=== PATIENT | female | born 2000 | race American Indian/Alaskan Native ===

== ENCOUNTER 2025-04-17 12:22 | Outpatient (REF) | payer MEDICAID, SELFPAY ==
--- OUTSIDE RECORDS SUMMARY | 2023-12-13 09:00 | XMS_ITS ---
Author Organization [facility] [employer], [facility] Address [address] [id number] [address] Care Team Providers Care Lieutenant/Deputy Name Role Phone [facility] Primary Care Provid er Unavailable Stephanie Haas Unavailable [phone] REASON FOR VISIT Appointment Confirmation Encounters Encounter Location Date Provider Diagnosis [facility] [address] [id number] [address] 12/13/2023 [facility] PLAN OF TREATMENT No Information
--- OUTSIDE RECORDS SUMMARY | 2023-12-16 07:00 | XMS_ITS ---
Author Organization [facility] [employer] Address [address] [id number], [place] [address] Care Team Providers Care Cafeteria Server Name Role Phone [facility] Primary Care Provid er Unavailable Stephanie Haas Unavailable [phone] Melissa Cruz Unavailable [phone] REASON FOR VISIT BC Consult Encounters Encounter Location Date Provider Diagnosis [facility] Facility [address] [place] [address] 12/16/2023 Melissa Cruz PLAN OF TREATMENT No Information
--- OUTSIDE RECORDS SUMMARY | 2024-01-20 10:57 | XMS_ITS ---
Author Organization [facility] [employer] [facility] Address [address] [id number], [place] [address] Care Team Providers Care Australian Rules Footballer Name Role Phone [facility] Primary Care Provid er Unavailable Stephanie Haas Unavailable REASON FOR VISIT APPT Confirmation Encounters Encounter Location [facility] [address] [id number], [place] [address] 01/20/2024 Stephanie Haas PLAN OF TREATMENT No Information
--- OUTSIDE RECORDS SUMMARY | 2024-01-24 09:00 | XMS_ITS ---
Author Organization [employer] Address [address] [id number], [place] [address] Care Team Providers Care Radioisotope Technician Name Role Phone [facility] Primary Care Provid er Unavailable Stephanie Haas Unavailable [phone] REASON FOR VISIT establish care / need PCP Encounters Encounter Location Date Provider Diagnosis [facility] ([facility]) [facility] [place] [address] 01/24/2024 Stephanie Haas PLAN OF TREATMENT No Information
--- OUTSIDE RECORDS SUMMARY | 2024-01-26 11:49 | XMS_ITS | Continuity of Care Document ---
Author Organization [facility] Address [address] [place] [address] Phone Care Team Providers Care Display Mechanic Name Role Phone Nursing, Nursing Unavailable Unavailable [...] Location Reason(s) For Visit Diagnoses Date Provider [facility], [address] [place] [address], [facility], tel:[phone] [facility] No Information 4 Nursing Nursing. 30 [facility] [id number] [address] [place] [address], [facility], . tel:[phone], [facility], tel:[phone] [facility] Abdominal pain (chief complaint) Encounter for screening, unspecifiedAcute UTI 4 Allen Sebastian. [address], [place], [facility], . tel:[phone] [facility], [address] [place] [address], [facility], tel:[phone] [facility] .lower back pain (chief complaint) Lumbar back painBilateral thigh painPain in left thigh 4 Ed Olmos. [address] [place], [address] 1, . tel:[phone] [facility], [address] [place] [address], [address], tel:[phone] [facility] (chief complaint) Limited care, third weeks gestation of pregnancyEncounter for screening for infections with a predominantly sexual mode of transmissionEncounter for screening for other infectious and parasitic diseases 3 Kay Benedict. [address] [place] [address], [facility] [place], . tel:[phone] [facility], [address] [place] [address], [address], tel:[phone] [address] [place] [address] Adult Medical podiatry (chief complaint) Acute right ankle pain 3 Mirna Elias. [address] [place] [address], [id number] [address] [place] [address], [id number], . tel:[phone] [facility], [address] [place] [address], [facility], tel:[phone] [facility] No Information 3 Rk Velasquez. [address] [place] [address], [facility] [place], . tel:[phone] [facility], [address] [place] [address], [facility], [place] tel:[phone] [place] [facility] Anemia complicating , third [id number] weeks gestation of 3 Milly Avalos. [address] [place], [place], [id number], [place]. tel:[phone], [facility], tel:[phone] (chief complaint) Normal , third [id number] weeks gestation of pregnancyAnemia in , third trimester 3 Kay Benedict. [address] [place] [address], [facility] [place], . tel:[phone] [facility], [address] [place] [address], [facility], tel:[phone] [facility] Anemia complicating , second trimester 3 Nursing Nursing. [address] [facility], [id number] [place], [place], [facility], . tel:[phone] [facility], [address] [place] [address], [facility], tel:[phone] [facility] (chief complaint) Normal , third [id number] weeks gestation of 3 Kay Benedict. [address] [place] [address], [facility] [place], . tel:[phone] [facility], [address] [place] [address], [facility], tel:[phone] [facility] No Information 3 Rafstefan Santos. [address] [place], [place], [facility], . tel:[phone] [facility], [address] [place] [address], [facility], tel:[phone] [place] No Information 3 Rk Velasquez. [address] [place], [place], [facility] [place], . [phone] [facility], [address] [place] [address], [facility], tel:[phone] [facility] (chief complaint) Limited care, second [id number] weeks gestation of pregnancyShortness of breath due to in second trimesterShortness of breathAnemia in , second trimester 3 Kay Benedict. [address] [place] [address], [facility] [place], . tel:[phone] [facility], [address] [place] [address], [facility], tel:[phone] [place] No Information 3 Beckman Harsh. [address] [place] [address], [facility] [place], [place]. tel:[phone] [facility], [address] [place] [address], [facility], [place] tel:[phone] [place] Abnormal maternal glucose tolerance, antepartum Sep- 3 Demarcoherminia Benedict. [address] [place], [place], [facility] [place], . tel:[phone] [facility], [address] [place] [address], [facility], [place] tel:[phone] [facility] (chief complaint) Limited care, second weeks gestation of Feb- 3 Kay Benedict. [address] [place] [address], [facility] [place], . tel:[phone] [facility], [address] [place] [address], [facility], [place] tel:[phone] [address] [place] [address] Adult Medical podiatry (chief complaint) Acute right ankle pain Feb- 3 Mirna Elias. [address] [place] [address], [id number] [address] [place] [address], [address] [place] [address], [place]. tel:[phone] [facility], [address] [place] [address], [facility], [place] tel:[phone] [address] [place] [address] Adult Medical hand/foot pain (chief complaint) Chronic pain of right ankleOther chronic painWrist pain, left 3 Issac Gonzalez. [address] [place], [address], [place]. tel:[phone] [facility], [address] [place] [address], [facility], [place] tel:[phone] [place] [facility] (chief complaint) Normal , second [id number] weeks gestation of 3 Sandy Thomas. [address] [place], [address], [place]. tel:[phone] [facility], [address] [place] [address], [facility], [place] tel:[phone] [place] No Information 3 Rk Velasquez. [address] [place] [address]. tel:[phone] [facility], [address] [place] [address] tel:[phone] (chief complaint) Normal in first [id number] weeks gestation of pregnancyEncounter for screening for infections with a predominantly sexual mode of transmissionEncounter for screening for other infectious and parasitic diseasesEncounter for gynecological examination (general) (routine) without abnormal findings 3 Kay Benedict. [address] [place] [address], . tel:[phone] [facility], [address] [place] [address], [facility], tel:[phone] [place] [facility] Encounter for test, result unknown 3 Nursing Nursing. 30 [facility], [id number] [address] [place] [address], [facility], . tel:[phone] [facility], [address] [place] [address], [facility], tel:[phone] [place] No Information 3 Zia Pereira. 105 [facility], [id number] [address] [place] [address], . tel:[phone] [facility], [address] [place] [address], [facility], tel:[phone] [address] [place] [address] Adult Medical establish care (chief complaint) Wrist pain, rightChronic pain of right ankleOther chronic painEncounter to establish care 3 Issac Gonzalez. [address] [place], [place], [facility], . tel:[phone] Family History Family Member Type Diagnosis Age [...] Of Treatment Date Type Action Status Goal SBIRT. Due on du e Goal Hep B Core Ab, I gM. Due on due Goal Tdap/Td. Due on due Goal Depression scree mary. Due on due Goal Tdap. Due on due Goal PAP. Due on due Goal HCV reflex to Qu ant RT PCR. Due on due Goal HPV (). Due on due Goal SBIRT. Due on du e Goal Tdap/Td. Due on due Goal PAP. Due on due Goal Hep B Core Ab, I gM. Due on due Goal HPV (). Due on due Goal HCV reflex to [...] Goal HPV (1st). Due on due Goal SBIRT. Due on [...] Goal Tdap/Td. Due on due Goal HPV (1st). Due on due Goal PAP. Due on [...] due Goal PAP. Due on due Goal PAP. Due on due Goal HPV (). Due on due Goal Tdap. Due on due Goal Depression scree mary. Due on due Goal Tdap/Td. Due on due Goal Hep B Core [...] I gM. Due on due Goal HPV (). Due on due Goal Depression scree mary. Due on due Goal PAP. Due on due Goal Depression scree mary. Due on due Goal Tdap/Td. Due on due Goal Tdap. Due on due Goal PAP. Due on due Goal HCV reflex to Qu ant RT PCR. Due on due Goal SBIRT. Due on du e Goal HPV (). Due on due Goal Hep B Core Ab, I gM. Due on due Goal Hep B Core Ab, I gM. Due on due Goal HPV (). Due on due Goal PAP. Due on due Goal HCV reflex to Qu ant RT PCR. Due on due Goal SBIRT. Due on du e Goal Tdap. Due on due Goal Tdap/Td. [...] Goal HPV (). Due on due Goal HCV reflex to [...] Depression scree mary. Due on due Goal Influenza vaccin e. [...] Goal HPV (1st). Due on due Goal Depression scree mary. Due on due Goal Hep B Core Ab, I gM. Due on due Goal HCV reflex to Qu ant RT PCR. Due on due Goal SBIRT. Due on du e Goal Depression scree mary. Due on due Goal Tdap/Td. Due on due Goal Hep B Core Ab, I gM. Due on due Goal Influenza vaccin e. Due on due Goal HPV (1st). Due on due Goal Tdap. Due on due Goal Hep B Surface Ab , Quant. Due on due Goal Tdap/Td. Due on due Goal HPV (1st). Due on due Goal SBIRT. Due on du e Goal Hep B Core Ab, I gM. Due on due Goal PAP. Due on due Goal Tdap. Due on due Goal Depression scree mary. Due on due Goal HCV reflex to Qu ant RT PCR. Due on due Goal Hepatitis C scre ening. Due on due Goal Influenza vaccin e. Due on due Goal Hepatitis C scre [...] Future Order: Lab Order HCG Derrick t ([id number]), Ordered on: Ordered Future Order: Radiology Order Zahra mbar Spine X-ray (including sacrum) (Complete, with bending views) ([id number]), Ordered on: Ordered Future Order: Radiology Order OB Ultrasound; Follow-Up (Per Fetus) ([id number]), Ordered on: Ordered Future Order: Lab Order Ct, Ng, Trich vag by CONRADO ([id number]), Sent on: Sent Future Order: Lab Order Group B Streptococcus Colonization Detection, NNA ([id number]), Sent on: Sent Future Order: Lab Order Iron/TIB C ([id number]), Sent on: Sent Future Order: Lab Order Ferritin ([id number]), Sent on: Sent Future Order: Lab Order Gestatio nal Glucose Tolerance 3 Hour ([id number]), Sent on: Sent Future Order: Lab Order Gestatio nal Glucose Tolerance 3 Hour ([id number]), Sent on: Sent Future Order: Lab Order CBC ([id number]), Sent on: Sent Future Order: Lab Order GTT 1 Hr ([id number]), Sent on: Sent Future Order: Lab Order HIV 1/0/ 2 Ag/Ab With Reflex ([id number]), Sent on: Sent Future Order: Lab Order Monitor 14-Drug Class Profile ([facility] ) ([id number]), Sent on: Sent Future Order: Lab Order RPR, Rfx Qn RPR/Confirm TP-PA ([id number]), Sent on: Sent Future Order: Radiology Order OB Ultrasound; Follow-Up (Per Fetus) ([id number]), Ordered on: Ordered Future Order: Radiology Order An kle X-ray; Limited (2 views) ([id number]), Ordered on: Ordered Future Order: Radiology Order Wr ist X-ray; Limited (2 views) ([id number]), Ordered on: Ordered Future Order: Lab Order AFP, Ser um, Open Spina Bifida ([id number]), Ordered on: Ordered Future Order: Lab Order MaterniT 21 PLUS Core+SCA ([id number]), Ordered on: Ordered Future Order: Radiology Order OB Ultrasound (equal or greater than 14 wks GA); Transabdominal; Single Fetus ([id number]), Ordered on: Ordered Future Order: Radiology Order Wr ist X-ray; Limited (2 views) ([id number]), Ordered on: Ordered Future Order: Radiology Order An kle X-ray; Limited (2 views) ([id number]), Ordered on: Ordered Future Order: Lab Order SOLANGE ([id number]), Sent on: Sent Future Order: Lab Order CBC w/di ff ([id number]), Sent on: Sent Future Order: Lab Order CMP ([id number]), Sent on: Sent Future Order: Lab Order Lyme, We larry Blot, Serum ([id number]), Sent on: Sent Future Order: Lab Order RPR, Rfx Qn RPR/Confirm TP-PA ([id number]), Sent on: Sent Future Order: Lab Order Rheumato id Factor ([id number]), Sent on: Sent Future Order: Lab Order HIV 1/0/ 2 Ag/Ab With Reflex ([id number]), Sent on: Sent History Of Present Illness [...] ankle. Related to Acute right ankle pain Follow up in <1-2wks after xrays Related to Chronic pain of right ankle Follow up in <1-2 wks after xray s Related to Wrist pain, left Supportive Care Related to Wrist pain, left Supportive Care Related to Other chronic pain [...]
[2025-04-17 14:40] LABS: MANUAL DIFF FLAG NO
[2025-04-17 14:43] LABS: Alanine Aminotransferase 23 U/L (0-31); Albumin Level 4.6 g/dL (3.5-5.0); Alkaline Phosphatase 87 U/L (39-117); Aspartate Amino Transferase 27 U/L (5-31); Cholesterol 167 mg/dL (<200); HDL Cholesterol 46 mg/dL (>40); Total Protein 7.5 g/dL (6.5-8.0); Triglycerides 49 mg/dL (<150)
[2025-04-17 14:44] LABS: Hematocrit 38.7 % (37.0-47.0); Hemoglobin 12.9 g/dl (12.0-16.0); Imm Gran Abs Auto 0.02 X10*3/uL (0.00-0.03); Imm Gran Pct Auto 0.3 % (0.0-0.4); Lymphocytes Absolute Auto 2.7 X10*3/uL (1.2-4.9); Mean Corpuscular HGB Conc 33.3 g/dl (31.0-35.0); Mean Corpuscular Hemoglobin 29.7 pg (27.0-33.0); Mean Corpuscular Volume 89.2 fL (80.0-98.0); NRBC Abs Auto 0.000 X10*3/uL (0.0-0.012); NRBC Pct Auto 0.0 /100WBC (0.0-0.2); Platelet Count 354 X10*3/uL (160-400); Red Blood Count 4.34 X10*6/uL (4.20-5.50); White Blood Count 7.9 X10*3/uL (4.8-10.8)
--- OUTSIDE RECORDS SUMMARY | 2025-04-17 15:41 | XMS_ITS | Clinical Summary ---
Author Organization [facility] Address [address] [place] [address] Care Team Providers Care Brake Operator Name Role Phone Unavailable Primary Care Provider Unavailabl e Allergies No known active allergies Medications No known medications Active Problems Problem Noted Date Diagnosed Date Indication for care in labor or delivery 024 Immunizations Name Administration Dates Next Due MMR 06/24/2023 Social History Tobacco Use Types Packs/Day Years Used Date Smoking Tobacco: Never Passive Smoke Exposure: Never Smokeless Tobacco: Never Tobacco Cessation:Counseling Given: No Sex and Gender Information Value Date Recorded Sex Assigned at Female 06/22/2023 9:48 AM EST Gender Identity Not on file Sexual Orientation Not on file Job Start Date Occupation Industry Not on file Not on file Not on file Last Filed Vital Signs Vital Sign Reading Time Taken Comments Blood Pressure 101/58 06/24/2023 9:20 AM EST Pulse 73 06/24/2023 9:20 AM EST Temperature 36.7 C (98.1 F) 06/24/2023 9:20 AM EST Respiratory Rate 16 06/24/2023 9:20 AM EST Oxygen Saturation 98% 06/24/2023 9:20 AM EST Inhaled Oxygen Concentration - - Weight 51.7 kg (114 lb) 06/22/2023 1:37 PM EST Height 140 cm (4' 7.12 ) 06/22/2023 9:00 AM EST Body Mass Index 26.38 06/22/2023 9:00 AM EST Plan of Treatment Not on file Advance Directives For more information, please contact: [phone] Latest Code Status on File Code Status Date Activated Date Inactivated Comments Full Code 06/22/2023 10:16 AM 06/24/2023 9:17 PM This c ode status was ascertained in the following way: discussion with patient .
--- OUTSIDE RECORDS SUMMARY | 2025-04-17 15:42 | XMS_ITS | Patient Health Record ---
Author Organization [email or web address] Address [address] [facility] [id number] [address] Care Team Providers Care Department Store Door Greeter Name Role Phone Samesurf Primary Care Provid er Unavailable ReidTeresoStephanie sharpe Unavailable ALLERGIES No Known Allergies REASON FOR REFERRAL No Information MEDICATIONS Medication SIG (Take, Route, Frequency, Duration) Notes Start Date End Date Status Nitrofurantoin Monohyd Macro 100 MG 1 capsule with food Orally every 12 hrs for 5 days 09/14/2023 Active Docusate Sodium 100 MG 1 capsule as need ed Orally Once a day for 30 days [id number] Active metroNIDAZOLE 0.75 % 1 applicatorful at bedtime Vaginal Once a day for 5 days Active SOCIAL HISTORY Tobacco Use: Social History Observation Description Date Details (start date - stop date) Never Smoker NA - NA Sex Assigned At : Social History Observation Description Sex Assigned At Unknown Tobacco Use/Smoking Question Answer Notes Are you a nonsmoker PROBLEMS Problem Type ICD Code Onset Dates Problem Status W/U Status Risk SNOMED Code Notes Problem Anemia during (O99.019) Active confirmed [id number] PLAN OF TREATMENT No Information MEDICAL (GENERAL) HISTORY Medical History History ICD Code anemia-IV infusions
--- OUTSIDE RECORDS SUMMARY | 2025-04-17 15:42 | XMS_ITS | Clinical Summary ---
Author Organization [facility] Address [address] [place] [address] Care Team Providers Care Cake Knocker Name Role Phone Unavailable Primary Care Provider Unavailabl e Social History Tobacco Use Types Packs/Day Years Used Date Smoking Tobacco: Never Smokeless Tobacco: Never Comments Unknown Sex and Gender Information Value Date Recorded Sex Assigned at Not on file Legal Sex Female 4:49 PM EDT Gender Identity Not on file Sexual Orientation Not on file Obstetrics History Plan of Treatment Health Maintenance Due Date Last Done Comments HPV Vaccines (1 - 3-dose series) 2013 DTaP,Tdap,and Td Vaccines (1 - Tdap) 2017 Hepatitis B Vaccines (1 of 3 - 19+ 3-dose series) 2017 Cervical Cancer Screening: P ap Smear 12/30/2019 HIV Screening 01/19/2024 Hepatitis C Screening 01/19/2024 Social Influencers of Health Screening 01/19/2024 Depression Screening 06/21/2024 COVID-19 Vaccine ( - 2023-2 5 season) 2025 Influenza Vaccine (#1) 2025 RSV Immunization Adult Patie nts (1 - 1-dose 75+ series) 2073 MMR Vaccines Aged Out 06/24/2023 No longer eligi ble based on patient's age to complete this topic HIB Vaccines Aged Out No longer eligi ble based on patient's age to complete this topic Hepatitis A Vaccines Aged Out No long er eligible based on patient's age to complete this topic IPV Vaccines Aged Out No longer eligi ble based on patient's age to complete this topic Meningococcal ACWY Vaccine Aged Out N o longer eligible based on patient's age to complete this topic Meningococcal B Vaccine Aged Out No l onger eligible based on patient's age to complete this topic Pneumococcal Vaccine: Pediat rics (0 to 5 Years) and At-Risk Patients (6 to 49 Years) Aged Out No longer eligi ble based on patient's age to complete this topic RSV Immunization Patients Un miriam 20 months Aged Out No longer eligible b ased on patient's age to complete this topic Varicella Vaccines Aged Out No longer eligible based on patient's age to complete this topic
--- OUTSIDE RECORDS SUMMARY | 2025-04-17 15:42 | XMS_ITS | Clinical Summary ---
Author Organization [employer] Address [address] [facility] [address] [place] [address] Care Team Providers Care Assurance Manager Insurance Name Role Phone Marcello Brand CNP Primary Care Provider [phone] Medications No known medications Active Problems No known active problems Encounters Date Type Department Care Team Description 04/10/2025 10:30 AM EDT Office Visit [facility] [address] [place] [address] Marcello Brand CNP Encounter for physical examination (Primary Dx); Ankle mass, right; Encounter for counseling regarding contraception; Dietary counseling; Exercise counseling; Overweight; Nelson's palsy 04/10/2025 Travel 04/06/2025 Telephone [facility] [address] [place] [address] Cristiane Arredondo MA chart prep 04/03/2025 Patient Outreach [facility] [address] [place] [address] Franco Pendleton MD Pre-visit Planning (SDOH screening negative and Tobacco screening negative) 03/06/2025 Telephone [facility] [address] [place] [address] Franco Pendleton MD Appointment Request from Last 3 Months Social History Tobacco Use Types Packs/Day Years Used Date Smoking Tobacco: Never Passive Smoke Exposure: Never Smokeless Tobacco: Never Tobacco Cessation:Counseling Given: Not Answered Depression Answer Date Recorded Patient Health Questionnaire-9 Score 0 04/10/2025 Patient Health Questionnaire-9 Score 0 04/10/2025 Last PHQ-9: Questionnaire Data Not on file 1 Housing Stability Answer Date Recorded What is your housing situation today? I have lissy cole 04/03/[address] you li ve. Do you have problems with any of the following? None of the above 04/03/2025 Food Insecurity Answer Date Recorded Within the past 12 months, y ou worried that your food would run out before you got money to buy more: Never True 04/03/2025 Within the past 12 months,th e food you bought just didn't last and you didn't have enough money to get more: Never True Transportation Answer Date Recorded In the past 12 months, has l ack of transportation kept you from medical appts, meetings, work or from getting things needed for daily living? No 04/03/2025 Utilities Answer Date Recorded In the past 12 months, has t he electric, gas, oil or water company threatened to shut off services in your home? No 04/03/2025 Depression Answer Date Recorded Patient Health Questionnaire-2 Score 0 04/10/2025 Internet Access Answer Date Recorded Internet Access Q1 Yes 04/03/2025 Internet Access Q2 Not on file 04/03/2025 Comments No Sex and Gender Information Value Date Recorded Sex Assigned at Female 03/06/2025 1:56 PM EDT Legal Sex Female 1:55 PM EDT Gender Identity Female 04/09/2025 4:19 PM EDT Sexual Orientation Straight 04/09/2025 4: 19 PM EDT Last Filed Vital Signs Vital Sign Reading Time Taken Comments Blood Pressure 104/68 04/10/2025 10:33 AM EDT Pulse 72 04/10/2025 10:33 AM EDT Temperature 36.3 C (97.3 F) 04/10/2025 10:33 AM EDT Respiratory Rate 14 04/10/2025 10:33 AM EDT Oxygen Saturation 99% 04/10/2025 10:33 AM EDT Inhaled Oxygen Concentration - - Weight 53.5 kg (118 lb) 04/10/2025 10:33 AM EDT Height 139.7 cm (4' 7 ) 04/10/2025 10:33 AM EDT Body Mass Index 27.43 04/10/2025 10:33 AM EDT Plan of Treatment Upcoming Encounters Date Type Department Care Team (Late st Contact Info) Description 06/25/2025 10:00 AM EST Clinical Support [facility] [address] [place] [address] Health Maintenance Due Date Last Done Comments HIV Screening 1998 Family Planning (PISQ) 11/29/2013 HPV Vaccines (1 - 3-dose series) 11/29/2013 Hepatitis C Screening 11/29/2016 DTaP/Tdap/Td Vaccines (1 - Tdap) 11/29/2017 Hepatitis B Vaccines (1 of 3 - 19+ 3-dose series) 11/29/2017 Pap Smear 11/30/2019 COVID-19 Vaccine (1 - 2023-2 5 season) 2025 Influenza Vaccine (#1) 2025 Alcohol/Substance Use Screening 04/10/2026 04/10/2025 Depression Screening 04/10/2026 04/10/2025, 04/10/2025 Disability Screening 04/10/2026 04/10/2025 SDOH Screening 04/10/2026 04/10/2025 Tobacco Screening 04/10/2026 04/10/2025 Zoster Vaccines (1 of 2) 11/29/2048 RSV Patients and Patients Aged 60 years or older (1 - 1-dose 75+ series) 11/29/2073 HIB Vaccines Aged Out No longer eligi [...] patient's age to complete this topic Meningococcal Vaccine Aged Out No ben marichuy eligible based on patient's age to complete this topic Pneumococcal Vaccine: Pediatrics (0 to 5 Years) and At-Risk Patients (6 to 49) Years Aged Out No longer eligible b ased on patient's age to complete this topic RSV under 20 months Aged Out No longe r eligible based on patient's age to complete this topic Rotavirus Vaccines Aged Out No longer eligible based on patient's age to complete this topic Insurance [employer] F[employer] Care Teams Assurance Manager Insurance Relationship Specialty Start Date End Date Marcello Brand CNP [address] [place] [id number] PCP - General Family Medicine 04/10/25
--- OUTSIDE RECORDS SUMMARY | 2025-04-17 15:42 | XMS_ITS | Encounter Summary ---
Author Organization [employer] Address [address] [facility] [address] [place] [address] Care Team Providers Care Roving Inspector Name Role Phone Marcello Brand GREG Primary Care Provider [phone] Reason for Visit * Reason Onset Date Comments Appointment Request 03/06/2025 Encounter Details Date Type Department Care Team (Late Contact Info) Description 03/06/[address] [facility] [address] [place], [place] [phone] Franco Pendleton MD [address] [place], [place] [phone] Appointment Request Social History Tobacco Use Types Packs/Day Years Used Date Smoking Tobacco: Never Assessed Comments Unknown Sex and Gender Information Value Date Recorded Sex Assigned at Female 03/06/2025 1:56 PM EDT Legal Sex Female 1:55 PM EDT Gender Identity Female 04/09/2025 4:19 PM EDT Sexual Orientation Straight 04/09/2025 4: 19 PM EDT documented as of this encounter Miscellaneous Notes * Telephone Encounter - Ruthie Rodgers - 03/06/2025 1:58 PM EDT TC from caller requesting NEW PATIENT visit . DX : N/A Medical Concern: Half face numbness Insurance name : [employer] Location : [place] Demographic information updated documented in this encounter Plan of Treatment Upcoming Encounters Date Type Department Care Team (Late Contact Info) Description 06/25/2025 10:00 AM EST Clinical Support [facility] [address] [place], [place] [phone] documented as of this encounter Visit Diagnoses Not on filedocumented in this encounter Care Teams Roving Inspector Relationship Specialty Start Date End Date Marcello Brand CNP [address] [place], [place] [address] [address] PCP - General Family Medicine 04/10/25 documented as of this encounter
[2025-04-18 08:34] LABS: HBS Num1 0.23 mIU/mL (0-7.99); HBc Num1 0.22 S/CO (0.00-0.79); HBsAGNum1 0.39 S/CO (0.00-0.99); HIV Num 1 0.06 S/CO (0.00-0.99); Hepatitis B Surface Antigen Negative (Negative); ~HepC Num1 0.09 S/CO (0.00-0.79); ~Hepatitis B Surface Antibody NONREACTIVE (Nonreactive); ~Hepatitis C Antibody Nonreactive (Nonreactive)
== END 2025-04-17 12:23 | disposition home or self-care (01) ==
LOC: HO.CHCLDS 12:22
DX: Z00.00 Encounter for general adult medical examination without abnormal findings (principal); Z11.59 Encounter for screening for other viral diseases; Z11.4 Encounter for screening for human immunodeficiency virus [HIV]
CPT/HCPCS: 36415; 80061; 80076; 85025; 86704; 86706; 86803; 87340; 87389

== ENCOUNTER 2025-05-31 15:03 | Outpatient (REF) | payer MEDICAID, OTHER, SELFPAY ==
--- OUTSIDE RECORDS SUMMARY | 2023-12-13 08:00 | XMS_ITS ---
Author Organization [facility] [employer], [facility] Address [address] [id number] [address] Care Team Providers Care Transfer Agent Name Role Phone [facility] Primary Care Provid er Unavailable Stephanie Haas Unavailable [phone] REASON FOR VISIT Appointment Confirmation Encounters Encounter Location Date Provider Diagnosis [facility] [address] [id number] [address] 12/13/2023 [facility] PLAN OF TREATMENT No Information
--- OUTSIDE RECORDS SUMMARY | 2023-12-16 06:00 | XMS_ITS ---
Author Organization [facility] [employer] Address [address] [id number], [place] [address] Care Team Providers Care Loom Changer Name Role Phone [facility] Primary Care Provid er Unavailable Stephanie Haas Unavailable [phone] Melissa Cruz Unavailable [phone] REASON FOR VISIT BC Consult Encounters Encounter Location Date Provider Diagnosis [facility] [address] [place] [address] 12/16/2023 Melissa Cruz PLAN OF TREATMENT No Information
--- OUTSIDE RECORDS SUMMARY | 2024-01-20 09:57 | XMS_ITS ---
Author Organization [facility] [employer] [facility] Address [address] [id number], [place] [address] Care Team Providers Care Molasses And Caramel Operator Name Role Phone [facility] Primary Care Provid er Unavailable Stephanie Haas Unavailable [phone] REASON FOR VISIT APPT Confirmation Encounters Encounter Location Date Provider Diagnosis [employer] [address] [id number], [place] [address] 01/20/2024 Stephanie Haas PLAN OF TREATMENT No Information
--- OUTSIDE RECORDS SUMMARY | 2024-01-24 08:00 | XMS_ITS ---
Author Organization [employer] Address [address] [facility] [id number], [place] [address] Care Team Providers Care Rn Ambulatory Name Role Phone [facility] Primary Care Provid er Unavailable Stephanie Haas Unavailable REASON FOR VISIT establish care / need PCP Encounters Encounter Location Date Provider Diagnosis [facility] ([facility]) [facility] [address] [address] 01/24/2024 Stephanie Haas PLAN OF TREATMENT No Information
--- OUTSIDE RECORDS SUMMARY | 2024-01-26 10:49 | XMS_ITS | Continuity of Care Document ---
Author Organization [facility] Address [address] [place] [address] Phone Care Team Providers Care Lesson Instructor Name Role Phone Nursing, Nursing Unavailable Unavailable Allergies, Adverse Reactions, Alerts Substance Reaction Status Criticality No Known Allergies Active No Inform ation Medications Medication Instructions Dosage Effective Dates (start - stop) Status Comments Iron (ferrous sulfate) 325 mg (65 mg iron) tablet take 1 tablet by oral route 3 times every day 325 MG - Active acetaminophen 500 mg tablet take 1 tablet by oral route every 8 hours as needed as needed 500 MG - Active Advance Directives Directive Yes / No Effective Date File Name No Information Encounters Encounter Description Practice Location Reason(s) For Visit Diagnoses Date Provider [facility], [address] [place] [address], [facility], tel:[phone] [facility] No Information 4 Nursing Nursing. 30 [facility] [id number] [address] [place] [address], [facility], . tel:[phone], [facility], tel:[phone] [facility] Abdominal pain (chief complaint) Encounter for screening, unspecifiedAcute UTI 4 Allen Sebastian. [address] [place], [place], [facility], . tel:[phone] [facility], [address] [place] [address], [facility], tel:[phone] [facility] .lower back pain (chief complaint) Lumbar back painBilateral thigh painPain in left thigh 4 Ed Olmos. [address] [place], [address] 1, . tel:[phone] [facility], [address] [place] [address], [address], tel:[phone] (chief complaint) Limited care, third [id number] weeks gestation of pregnancyEncounter for screening for infections with a predominantly sexual mode of transmissionEncounter for screening for other infectious and parasitic diseases 3 Kay Benedict. [address] [place] [address], [facility], . tel:[phone] [facility], [address] [place] [address], [address], tel:[phone] [address] [place] [address] Adult Medical podiatry (chief complaint) Acute right ankle pain 3 Mirna Elias. [address] [place] [address], [id number] [address] [place] [address], [id number], . tel:[phone] [facility], [address] [place] [address], [facility], tel:[phone] [facility] No Information 3 Rk Velasquez. [address] [place] [address], [facility], . tel:[phone] [facility], [address] [place] [address], [facility], [place] tel:[phone] [facility] Anemia complicating , third [id number] weeks gestation of 3 Milly Avalos. [address] [place], [place], [id number], [place]. tel:[phone], [facility], tel:[phone] [facility] (chief complaint) Normal , third [id number] weeks gestation of pregnancyAnemia in , third trimester 3 Kay Benedict. [address] [place] [address], [facility], . tel:[phone] [facility], [address] [place] [address], [facility], tel:[phone] [facility] Anemia complicating , second trimester 3 Nursing Nursing. 30 [address] [facility], [id number] [address], [place], [facility], . tel:[phone] [facility], [address] [place] [address], [facility], tel:[phone] [facility] (chief complaint) Normal , third [id number] weeks gestation of 3 aKy Benedict. [address] [place] [address], [facility], . tel:[phone] [facility], [address] [place] [address], [facility], tel:[phone] [facility] No Information 3 Rafstefan Santos. [address] [place], [place], [facility], . tel:[phone] [facility], [address] [place] [address], [facility], tel:[phone] No Information 3 Rk Velasquez. [address] [place], [place], [facility], . [phone] [facility], [address] [place] [address], [facility], tel:[phone] [facility] (chief complaint) Limited care, second [id number] weeks gestation of pregnancyShortness of breath due to in second trimesterShortness of breathAnemia in , second trimester 3 Kay Benedict. [address] [place] [address], [facility], . tel:[phone] [facility], [address] [place] [address], [facility], tel:[phone] No Information 3 Beckman Harsh. [address] [place] [address], [facility], [place]. tel:[phone] [facility], [address] [place] [address], [facility], [place] tel:[phone] [facility] Abnormal maternal glucose tolerance, antepartum Sep- 3 Demarcoherminia Benedict. [address] [place], [place], [facility], . tel:[phone] [facility], [address] [place] [address], [facility], [place] tel:[phone] [facility] (chief complaint) Limited care, second weeks gestation of Feb- 3 Kay Benedict. [address] [place] [address], [facility], . tel:[phone] [facility], [address] [place] [address], [facility], [place] tel:[phone] [address] [place] [address] Adult Medical podiatry (chief complaint) Acute right ankle pain Feb- 3 Mirna Elias. [address] [place] [address], [id number] [address] [place] [address], [address] [place] [address], [place]. tel:[phone] [facility], [address] [place] [address], [facility], [place] tel:[phone] [address] [place] [address] Adult Medical hand/foot pain (chief complaint) Chronic pain of right ankleOther chronic painWrist pain, left 3 Issac Gonzalez. [address] [place], [address], [place]. tel:[phone] [facility], [address] [place] [address], [facility], [place] tel:[phone] [facility] (chief complaint) Normal , second weeks gestation of 3 Sandy Thomas. [address] [place], [address], [place]. tel:[phone] [facility], [address] [place] [address], [facility], [place] tel:[phone] No Information 3 Rk Velasquez. [address] [place] [address]. tel:[phone] [facility], [address] [place] [address] tel:[phone] [facility] (chief complaint) Normal in first [id number] weeks gestation of pregnancyEncounter for screening for infections with a predominantly sexual mode of transmissionEncounter for screening for other infectious and parasitic diseasesEncounter for gynecological examination (general) (routine) without abnormal findings 3 Kay Benedict. [address] [place] [address], . tel:[phone] [facility], [address] [place] [address], [facility], tel:[phone] [facility] Encounter for test, result unknown 3 Nursing Nursing. 30 [facility], [id number] [address] [place] [address], [facility], . tel:[phone] [facility], [address] [place] [address], [facility], tel:[phone] No Information 3 Zia Pereira. 105 [facility], [id number] [address] [place] [address], . tel:[phone] [facility], [address] [place] [address], [facility], tel:[phone] [address] [place] [address] Adult Medical establish care (chief complaint) Wrist pain, rightChronic pain of right ankleOther chronic painEncounter to establish care 3 Issac Gonzalez. [address] [place], [place], [facility], . tel:[phone] Family History Family Member Type Diagnosis Age At Onset Father Problem Alive and well Mother Problem Alive and well Payers Payer name Insurance type Covered libertarian ID Authoriza tion(s) Self Pay VRC/wl Social History Type Description Quantity Date Captured Comments Alcohol Use Details Unknown Caffeine Use Details Unknown Tobacco Use Status No Information Smoking Status No Information Sex Female Sexual Orientation Straight or heterosexual Jun Gender Identity Female Chief Complaint And Reason For Visit No Information Plan Of Treatment Date Type Action Status Goal HCV reflex to Qu ant RT PCR. Due on due Goal Hep B Core Ab, I gM. Due on due Goal PAP. Due on due Goal HPV (). Due on due Goal Depression scree mary. Due on due Goal Tdap. Due on due Goal SBIRT. Due on du e Goal Tdap/Td. Due on due Goal Depression scree mary. Due on due Goal SBIRT. Due on du e Goal Tdap. Due on due Goal Hep B Core Ab, I gM. Due on due Goal HCV reflex to Qu ant RT PCR. Due on due Goal PAP. Due on due Goal HPV (). Due on due Goal Tdap/Td. Due on due Goal Tdap. Due on due Goal HPV (). Due on due Goal PAP. Due on due Goal SBIRT. Due on du e Goal Depression scree mary. Due on due Goal Hep B Core Ab, I gM. Due on due Goal HCV reflex to Qu ant RT PCR. Due on due Goal Tdap/Td. Due on due Goal HPV (). Due on due Goal Depression scree mary. Due on due Goal Hep B Core Ab, I gM. Due on due Goal Tdap. Due on due Goal HCV reflex to Qu ant RT PCR. Due on due Goal Tdap/Td. Due on due Goal SBIRT. Due on du e Goal PAP. Due on due Goal Tdap/Td. Due on due Goal HCV reflex to Qu ant RT PCR. Due on due Goal Hep B Core Ab, I gM. Due on due Goal Depression scree mary. Due on due Goal Tdap. Due on due Goal PAP. Due on due Goal HPV (). Due on due Goal SBIRT. Due on du e Goal SBIRT. Due on du e Goal HCV reflex to Qu ant RT PCR. Due on due Goal Tdap. Due on due Goal Tdap/Td. Due on due Goal PAP. Due on due Goal HPV (1st). Due on due Goal Hep B Core Ab, I gM. Due on due Goal Depression scree mary. Due on due Goal PAP. Due on due Goal HPV (1st). Due on due Goal Tdap. Due on due Goal Depression scree mary. Due on due Goal Tdap/Td. Due on due Goal SBIRT. Due on du e Goal Hep B Core Ab, I gM. Due on due Goal HCV reflex to Qu ant RT PCR. Due on due Goal Depression scree mary. Due on due Goal HPV (1st). Due on due Goal Hep B Core Ab, I gM. Due on due Goal PAP. Due on due Goal Tdap. Due on due Goal Tdap/Td. Due on due Goal SBIRT. Due on du e Goal HCV reflex to Qu ant RT PCR. Due on due Goal SBIRT. Due on du e Goal HPV (1st). Due on due Goal Hep B Core Ab, I gM. Due on due Goal Tdap/Td. Due on due Goal HCV reflex to Qu ant RT PCR. Due on due Goal Tdap. Due on due Goal PAP. Due on due Goal Depression scree mary. Due on due Goal SBIRT. Due on du e Goal Tdap/Td. Due on due Goal Tdap. Due on due Goal Depression scree mary. Due on due Goal HCV reflex to Qu ant RT PCR. Due on due Goal HPV (). Due on due Goal Hep B Core Ab, I gM. Due on due Goal PAP. Due on due Goal Tdap/Td. Due on due Goal HCV reflex to Qu ant RT PCR. Due on due Goal Tdap. Due on due Goal Hep B Core Ab, I gM. Due on due Goal PAP. Due on due Goal SBIRT. Due on du e Goal Depression scree mary. Due on due Goal HPV (). Due on due Goal Hep B Core Ab, I gM. Due on due Goal Tdap. Due on due Goal HPV (1st). Due on due Goal Tdap/Td. Due on due Goal Depression scree mary. Due on due Goal SBIRT. Due on du e Goal PAP. Due on due Goal HCV reflex to Qu ant RT PCR. Due on due Goal HPV (1st). Due on due Goal HCV reflex to Qu ant RT PCR. Due on due Goal Tdap/Td. Due on due Goal Tdap. Due on due Goal Depression scree mary. Due on due Goal SBIRT. Due on du e Goal PAP. Due on due Goal Hep B Core Ab, I gM. Due on due Goal SBIRT. Due on du e Goal PAP. Due on due Goal Tdap/Td. Due on due Goal Depression scree mary. Due on due Goal Hep B Core Ab, I gM. Due on due Goal HPV (1st). Due on due Goal Tdap. Due on due Goal Influenza vaccin e. Due on due Goal HCV reflex to Qu ant RT PCR. Due on due Goal HPV (1st). Due on due Goal HCV reflex to Qu ant RT PCR. Due on due Goal Tdap/Td. Due on due Goal SBIRT. Due on du e Goal Tdap. Due on due Goal Influenza vaccin e. Due on due Goal PAP. Due on due Goal Hep B Core Ab, I gM. Due on due Goal Depression scree mary. Due on due Goal HPV (). Due on due Goal Tdap/Td. Due on due Goal HCV reflex to Qu ant RT PCR. Due on due Goal Depression scree mary. Due on due Goal SBIRT. Due on du e Goal Influenza vaccin e. Due on due Goal Tdap. Due on due Goal Hep B Core Ab, I gM. Due on due Goal Hepatitis C scre ening. Due on due Goal Hep B Surface Ab , Quant. Due on due Goal SBIRT. Due on du e Goal Hep B Core Ab, I gM. Due on due Goal Depression scree mary. Due on due Goal Tdap/Td. Due on due Goal PAP. Due on due Goal Tdap. Due on due Goal Influenza vaccin e. Due on due Goal HCV reflex to Qu ant RT PCR. Due on due Goal HPV (1st). Due on due Goal Influenza vaccin e. Due on due Goal Tdap/Td. Due on due Goal Hep B Surface Ab , Quant. Due on due Goal Hep B Core Ab, I gM. Due on due Goal PAP. Due on due Goal Self-Management Goals. Due on due Goal Depression scree mary. Due on due Goal Hepatitis C scre ening. Due on due Goal HCV reflex to Qu ant RT PCR. Due on due Goal SBIRT. Due on du e Goal Tdap. Due on due Goal HPV (1st). Due on due Referral Ordered: Urinalysis ordered Referral Ordered: Referrals: Hematology ordered Referral Ordered: Urine test ordered Future Order: Lab Order HCG Derrick t ([id number]), Ordered on: Ordered Future Order: Radiology Order Zahra mbar Spine X-ray (including sacrum) (Complete, with bending views) ([id number]), Ordered on: Ordered Future Order: Radiology Order OB Ultrasound; Follow-Up (Per Fetus) ([id number]), Ordered on: Ordered Future Order: Lab Order Ct, Ng, Trich vag by CONRADO ([id number]), Sent on: Sent Future Order: Lab Order Group B Streptococcus Colonization Detection, NNA ([id number]), Sent on: Sent Future Order: Lab Order Iron/TIB C ([id number]), Sent on: Sent Future Order: Lab Order Ferritin ([id number]), Sent on: Sent Future Order: Lab Order Gestatio nal Glucose Tolerance 3 Hour ([id number]), Sent on: Sent Future Order: Lab Order Gestatio nal Glucose Tolerance 3 Hour ([id number]), Sent on: Sent Future Order: Lab Order CBC ([id number]), Sent on: Sent Future Order: Lab Order GTT 1 Hr ([id number]), Sent on: Sent Future Order: Lab Order HIV 1/0/ 2 Ag/Ab With Reflex ([id number]), Sent on: Sent Future Order: Lab Order Monitor 14-Drug Class Profile ([facility] ) ([id number]), Sent on: Sent Future Order: Lab Order RPR, Rfx Qn RPR/Confirm TP-PA ([id number]), Sent on: Sent Future Order: Radiology Order OB Ultrasound; Follow-Up (Per Fetus) ([id number]), Ordered on: Ordered Future Order: Radiology Order An kle X-ray; Limited (2 views) ([id number]), Ordered on: Ordered Future Order: Radiology Order Wr ist X-ray; Limited (2 views) ([id number]), Ordered on: Ordered Future Order: Lab Order AFP, Ser um, Open Spina Bifida ([id number]), Ordered on: Ordered Future Order: Lab Order MaterniT 21 PLUS Core+SCA ([id number]), Ordered on: Ordered Future Order: Radiology Order OB Ultrasound (equal or greater than 14 wks GA); Transabdominal; Single Fetus ([id number]), Ordered on: Ordered Future Order: Radiology Order Wr ist X-ray; Limited (2 views) ([id number]), Ordered on: Ordered Future Order: Radiology Order An kle X-ray; Limited (2 views) ([id number]), Ordered on: Ordered Future Order: Lab Order SOLANGE ([id number]), Sent on: Sent Future Order: Lab Order CBC w/di ff ([id number]), Sent on: Sent Future Order: Lab Order CMP ([id number]), Sent on: Sent Future Order: Lab Order Lyme, We larry Blot, Serum ([id number]), Sent on: Sent Future Order: Lab Order RPR, Rfx Qn RPR/Confirm TP-PA ([id number]), Sent on: Sent Future Order: Lab Order Rheumato id Factor ([id number]), Sent on: Sent Future Order: Lab Order HIV 1/0/ 2 Ag/Ab With Reflex ([id number]), Sent on: Sent History Of Present Illness Encounter Date Complaint History Of Prese nt Illness Abdominal pain Associated sympt oms include back pain. Pertinent negatives include bloating, blood in stool, change in appetite, constipation, diaphoresis, diarrhea, dizziness, dyspnea, eructation, fever, flank pain, flatulence, heartburn, hematuria, jaundice, lightheadedness, myalgia, nausea, rash, vaginal bleeding, vaginal discharge, vomiting, weight gain and weight loss. Additional information: lower abd pain that radiate to the back x 2 days. Pt denies any known trauma. .lower back pain 22yo P1 F ( 06/22/23) c/o lower back pain and bilateral inner thigh pain for the past month.Reports the pain is 8/10, started in the middle of her lower back, radiated down and around her pelvis, worse with walking and relieved with rest.No other complaints. LMP was 09/29/19 23. The patient had 1 previous . podiatry Pt. presents wit h f/u lump of the right lower leg. LMP was 09/29/19 23. The patient had 1 previous . LMP was 09/29/19 23. The patient had 1 previous . LMP was 09/29/19 23. The patient had 1 previous . LMP was 09/29/19 23. The patient had 1 previous . podiatry Pt. presents for eval. of both feet. hand/foot pain ongoing but wors ening per pt over several months , lump on R outer ankle and L hand /wrist areadenies traumapt is pregnent x 5m LMP was 09/29/19 23. The patient had 1 previous . LMP was 09/29/19 23. establish care PM -PSH -Meds - Social Tob - /ETOH s.t /Drugs -in for pain on right hand/wrist 2 months, r ankle pain 2 years, well , no smoking , no E.R. visits+ h/o arthritis in her brother=28yrs olddenies trauma or tick bitesno rashes or bruises Instructions Date Instruction Additional Infor dustin Urine dip was perfor med. Macrobid was prescribed. Follow up in 2-3 weeks for urine redip. Take medications as prescribed.Drink plenty of fluid, urinate after intercourse, avoid douching, avoid perfume soaps. If symptoms persist for more than 2 or 3 days after starting treatment return to the office. Related to Acute UTI Lower back pain x 1 monthLumbar XRay orderedRecommend Motrin 600mg q6h prn, rest, stretching exercises, hot compressesF/U with PCP Related to Lumbar back pain Reviewed ultrasound results with the pt. which showed a hard mass and recommended either an MRI or biopsy.Referred pt. to have biopsy done of the mass. Related to Acute right ankle pain Pt. to get diagnosti c ultrasound to eval. lump on right ankle. Related to Acute right ankle pain Supportive Care Related to Wrist pain, left Follow up in <1-2 wks after xray s Related to Wrist pain, left Follow up in <1-2wks after xrays Related to Chronic pain of right ankle Supportive Care Related to Other chronic pain as above Related to Chron ic pain of right ankle Supportive Care Related to Wrist pain, right Take medications as prescribed, do not skip doses. Related to Wrist pain, right Follow up in <1-2wks following xrays and labs Related to Wrist pain, right Supportive Care Related to Encou nter to establish care Practice good hygiene/ good hand washing Related to Encounter to establish care Safe sex practices discussed. Re lated to Encounter to establish care Complete your lab wo rk before you return to office. Related to Encounter to establish care Assessments Type Assessment Date No Information
--- NOTE | ~2025-05-31 | US_ITS ---
CLINICAL HISTORY: tender mass right ankle US extremity, nonvascular Comparison: None provided Findings: Corresponding to the patient's clinical findings is a circumscribed hypoechoic 1.1 x 1.0 x 0.5 cm mass with internal flow on color Doppler imaging. IMPRESSION: 1. Indeterminate solid mass corresponding to patient's finding. Consider MRI to further characterize and localize in regards to adjacent structures. This document has been electronically signed by: Terrance Uriarte MD on 06/01/2025 11:21:37
--- OUTSIDE RECORDS SUMMARY | 2025-05-31 22:35 | XMS_ITS | Clinical Summary ---
Author Organization [facility] ity Address [address] [place] [address] Care Team Providers Care Bass Guitar Teacher Name Role Phone Unavailable Primary Care Provider Unavailabl e Social History Tobacco Use Types Packs/Day Years Used Date Smoking Tobacco: Never Smokeless Tobacco: Never Comments Unknown Sex and Gender Information Value Date Recorded Sex Assigned at Not on file Legal Sex Female 4:49 PM EDT Gender Identity Not on file Sexual Orientation Not on file Plan of Treatment Health Maintenance Due Date Last Done Comments HPV Vaccines (1 - 3-dose series) 2013 DTaP,Tdap,and Td Vaccines (1 - Tdap) 2017 Hepatitis B Vaccines (1 of 3 - 19+ 3-dose series) 2017 Cervical Cancer Screening: P ap Smear 12/30/2019 HIV Screening 01/19/2024 Hepatitis C Screening 01/19/2024 Social Influencers of Health Screening 01/19/2024 Depression Screening 06/21/2024 COVID-19 Vaccine (1 - 2024-2 6 season) 2025 Influenza Vaccine (#1) 2025 RSV [...]
--- OUTSIDE RECORDS SUMMARY | 2025-05-31 22:35 | XMS_ITS | Clinical Summary ---
Author Organization [employer] Address [address] [facility] [address] [place] [address] Care Team Providers Care Statistical Typist Name Role Phone Marcello Brand CNP Primary Care Provider [phone] Medications No known medications Active Problems No known active problems Encounters Date Type Department Care Team Description 05/01/2025 Travel 04/23/2025 Results Follow-Up [facility] [address] [place] [address] Marcello Brand CNP XR Ankle 3+ Views Right 04/10/2025 10:30 AM EDT Office Visit [facility] [address] [place] [address] Marcello Brand CNP Encounter for physical examination (Primary Dx); Ankle mass, right; Encounter for counseling regarding contraception; Dietary counseling; Exercise counseling; Overweight; Nelson's palsy 04/10/2025 Travel 04/06/2025 Telephone [facility] [address] [place] [address] Arnulfo Cristiane [place] chart prep 04/03/2025 Patient Outreach [facility] [address] [place] [phone] Franco Pendleton MD Pre-visit Planning (SDOH screening negative and Tobacco screening negative) 03/06/2025 Telephone [facility] [address] [place] [address] Franco Pendleton MD Appointment Request from Last [...] Description 06/25/2025 10:00 AM EST Clinical Support [facility] [address] [place] [address] Health Maintenance Due Date Last Done Comments Family Planning (PISQ) 2013 HPV Vaccines (1 - 3-dose series) 2013 DTaP/Tdap/Td Vaccines (1 - Tdap) 2017 Hepatitis B Vaccines (1 of 3 - 19+ 3-dose series) 2017 Pap Smear 12/30/2019 COVID-19 Vaccine (1 - 2024-2 6 season) 2025 Influenza Vaccine (#1) 2025 Alcohol/Substance Use Screening 04/10/2026 04/10/2025 Depression Screening 04/10/2026 04/10/2025, 04/10/2025 Disability Screening 04/10/2026 04/10/2025 SDOH Screening 04/10/2026 04/10/2025 Tobacco Screening 04/10/2026 04/10/2025 Zoster Vaccines (1 of 2) 2048 RSV Patients and Patients Aged 60 years or older (1 - 1-dose 75+ series) 2073 HIV Screening Completed 04/17/2025 Hepatitis C Screening Completed 04/17/2025 HIB Vaccines Aged Out No longer eligi [...] on patient's age to complete this topic Procedures Procedure Name Priority Date/Time Associated Diagnosis Comments XR ANKLE 3+ VIEWS RIGHT Routine 04/18/2025 Ankle mass, right HEPATITIS C AB W/REFL TO HCV RNA, QN, PCR Routine 04/17/2025 12:37 PM EDT Encounter for physical examination HIV 1/2 ANTIGEN/ANTIBODY, FOURTH GENERATION W/RFL Routine 04/17/2025 12:37 PM EDT Encounter for physical examination HEPATITIS B SURFACE ANTIGEN, EIA Routine 04/17/2025 12:37 PM EDT Encounter for physical examination HEPATITIS B CORE AB TOTAL Routine 04/17/2025 12:37 PM EDT Encounter for physical examination HEPATITIS B SURFACE ANTIBODY, QUALITATIVE Routine 04/17/2025 12:37 PM EDT Encounter for physical examination HEPATIC FUNCTION PANEL Routine 04/17/2025 12:37 PM EDT Encounter for physical examination LIPID PANEL, STANDARD Routine 04/17/2025 12:37 PM EDT Encounter for physical examination CBC WITH AUTO DIFFERENTIAL Routine 04/17/2025 12:37 PM EDT Encounter for physical examination from Last 3 Months Results * XR Ankle 3+ Views Right (04/18/2025) Anatomical Region Laterality Modality Lower Extremities, Ankle Right Radiogr aphic Imaging [facility] IMG XR PROCEDURES Final R esult * (ABNORMAL) CBC auto differential (04/17/2025 12:37 PM EDT) White Blood Count 7.9 4.8 - 10.8 X10*3/uL [facility] Red Blood Count 4.34 4.20 - 5.50 X10*6/uL [facility] Hemoglobin 12.9 12.0 - 16.0 g/dl [facility] Hematocrit 38.7 37.0 - 47.0 % [facility] Mean Corpuscular Volume 89.2 80.0 - 98.0 fL [facility] Mean Corpuscular Hemoglobin 29.7 27.0 - 33.0 pg [facility] Mean Corpuscular HGB Conc 33.3 31.0 - 35.0 g/dl [facility] Red Cell Distribution Width 13.5 11.0 - 16.0 % [facility] Platelet Count 354 160 - 400 X10*3/uL [facility] Mean Platelet Volume 9.0(L) 9.4 - 12.3 fL [facility] Neutrophils Percent Auto 56.8 45 - 73 % [facility] Imm Gran Pct Auto 0.3 0.0 - 0.4 % [facility] Lymphocytes Percent Auto 33.8 20 - 40 % [facility] Monocytes Percent Auto 6.2 2 - 11 % [facility] Eosinophils Percent Auto 2.3 0 - 4 % [facility] Basophils Percent Auto 0.6 0 - 2 % [facility] NRBC Pct Auto 0.0 0.0 - 0.2 /100WBC [facility] Neutrophils Absolute Auto 4.5 2.0 - 8.3 x10*3/uL [facility] Imm Gran Abs Auto 0.02 0.00 - 0.03 X10*3/uL [facility] Lymphocytes Absolute Auto 2.7 1.2 - 4.9 X10*3/uL [facility] Monocytes Absolute Auto 0.5 0.1 - 1.2 X10*3/uL [facility] Eosinophils Absolute Auto 0.2 0.0 - 0.4 X10*3/uL [facility] Basophils Absolute Auto 0.1 0.0 - 0.2 X10*3/uL [facility] NRBC Abs Auto 0.000 0.0 - 0.012 X10*3/uL [facility] Blood Venous blood specimen / Unknown 04/17/2025 12:37 PM EDT 04/17/2025 2:30 PM EDT us Marcello Bradn [employer] LAB BLOOD ORDERABLES Lisa l Result [facility] [address] [place] [phone] * Hepatitis C Antibody with Reflex to HCV, RNA, Quantitative, Real-Time PCR (04/17/2025 12:37 PM EDT) Hepatitis C Antibody Nonreactive Nonreactive [facility] Comment:Antibodies to HCV no t detected; does not exclude early acuteHCV infection. Blood Venous blood specimen / Unknown 04/17/2025 12:37 PM EDT 04/17/2025 2:09 PM EDT [facility] LAB BLOOD ORDERABLES Lisa l Result Performing Organization Address [facility]/ZIP Co de Phone Number [facility] [address] [place] [address] [phone] * Hepatitis B surface antigen, EIA (04/17/2025 12:37 PM EDT) Hepatitis B Surface Ag Negative Negative [facility] Blood Venous blood specimen / Unknown 04/17/2025 12:37 PM EDT 04/17/2025 2:09 PM EDT [facility] LAB BLOOD ORDERABLES Lisa l Result Performing Organization Address City/[facility]/ZIP Co de Phone Number [facility] [address] [place] [phone] * Hepatitis B Core Antibody, Total (04/17/2025 12:37 PM EDT) Hepatitis B Core Antibody Nonreactive Nonreactive [facility] Blood Venous blood specimen / Unknown 04/17/2025 12:37 PM EDT 04/17/2025 2:09 PM EDT [facility] LAB BLOOD ORDERABLES Lisa l Result Performing Organization Address City/[facility]/ZIP Co de Phone Number [facility] [address] [place] [phone] * HIV-1/2 Antigen and Antibodies, Fourth Generation, with Reflexes (04/17/2025 12:37 PM EDT) [facility] HIV AB/AG Nonreactive Nonreactive [facility] Comment:HIV-1 p24 Ag and/or HIV-1/HIV-2 Ab not detected.A test result that is nonreactive does not exclude thepossibility of exposure to or infection with HIV-1 and/orHIV-2. Nonreactive results in this assay for individualswith prior exposure to HIV-1 and/or HIV-2 may be due toantigen and antibody levels that are below the limit ofdetection of this assay.The [employer] HIV Ag/Ab Combo assay result andsupplemental assay results should be interpreted inconjunction with the patient's clinical presentation,history and other laboratory results. If the results areinconsistent with clinical evidence, additional testing issuggested to confirm the result. Blood Venous blood specimen / Unknown 04/17/2025 12:37 PM EDT 04/17/2025 2:09 PM EDT [facility] LAB BLOOD ORDERABLES Lisa l Result [facility] [address] [place] [phone] * Hepatitis B Surface Antibody, Qualitative (04/17/2025 12:37 PM EDT) [facility] ~Hepatitis B Surface Antibody NONREACTIVE Nonreactive [facility] Comment:Nonreactive: < 8.00 mIU/mL Blood Venous blood specimen / Unknown 04/17/2025 12:37 PM EDT 04/17/2025 2:09 PM EDT [facility] LAB BLOOD ORDERABLES Lisa l Result Performing Organization Address City/[facility]/ZIP Co de Phone Number [facility] [address] [place] [phone] * Hepatic Function Panel (04/17/2025 12:37 PM EDT) Bilirubin, Total 0.4 0.0 - 1.0 mg/dL [facility] Bilirubin, Direct 0.1 0.0 - 0.5 mg/dL [facility] Aspartate Amino Transferase 27 5 - 31 U/L [facility] Alanine Aminotransferase 23 0 - 31 U/L [facility] Total Protein 7.5 6.5 - 8.0 g/dL [facility] Albumin Level 4.6 3.5 - 5.0 g/dL [facility] Alkaline Phosphatase 87 39 - 117 U/L [facility] Blood Venous blood specimen / Unknown 04/17/2025 12:37 PM EDT 04/17/2025 2:09 PM EDT Marcello Brand [facility] LAB BLOOD ORDERABLES Lisa l Result [facility] [address] [place] [phone] * (ABNORMAL) Lipid Panel, Standard (04/17/2025 12:37 PM EDT) Pathologist [facility] Triglycerides 49 <150 mg/dL [facility] Comment:Desirable Triglyceri de: less than 150 mg/dLBorderline High Triglyceride 150-199 mg/dLHigh Triglyceride: 200-499 mg/dLVery High Triglyceride: greater than or equal to 5OO mg/dL Cholesterol 167 <200 mg/dL [facility] Comment:Desirable Cholestero l: less than 200 mg/dLBorderline High Cholesterol: 200-239 mg/dLHigh Cholesterol: greater than 239 mg/dL LDL Cholesterol Calculated 112(H) <100 mg/dL [facility] Comment:Desirable LDL: less than 100 mg/dLNear Optimal/Above Optimal LDL: 110- 129 mg/dLBorderline High LDL: 130-159 mg/dLHigh LDL: 160-189 mg/dLVery High LDL: greater than or equal to 190 mg/dL HDL Cholesterol 46 >40 mg/dL [facility] Comment:Desirable HDL: great er than 40 mg/dL Note: This HDL assay may give artificially low results in patients with liver disease. Blood Venous blood specimen / Unknown 04/17/2025 12:37 PM EDT 04/17/2025 2:09 PM EDT Marcello Brand [employer] LAB BLOOD ORDERABLES Lisa l Result [facility] [address] [place] [phone] from Last 3 Months Insurance [facility] [employer] Care Teams Statistical Typist Relationship Specialty Start Date End Date Marcello Brand CNP [address] [place] [phone] PCP - General Family Medicine 04/10/25
--- OUTSIDE RECORDS SUMMARY | 2025-05-31 22:35 | XMS_ITS | Clinical Summary ---
Author Organization [facility] Prior to 11/18/24 Address [address] [place] [address] Care Team Providers Care Engine Maintenance Mechanic Name Role Phone Unavailable Primary Care Provider [...] Advance Directives For more information, please contact: [phone] Latest Code Status on File Code Status Date Activated Date Inactivated Comments Full Code 06/22/2023 10:16 AM 06/24/2023 9:17 PM This c ode status was ascertained in the following way: discussion with patient .
--- OUTSIDE RECORDS SUMMARY | 2025-05-31 22:35 | XMS_ITS | Patient Health Record ---
Author Organization [employer] Address [address] [facility] [id number] [place] [address] Care Team Providers Care Carbonation Tester Name Role Phone [employer] Primary Care Provid er Unavailable ReidTeresoStephanie sharpe Unavailable [phone] ALLERGIES No Known Allergies REASON FOR REFERRAL [...] Notes Problem Anemia during (O99.019) Active confirmed [id number] PLAN OF TREATMENT No Information MEDICAL (GENERAL) HISTORY Medical History History ICD Code anemia-IV infusions
== END 2025-05-31 15:04 | disposition home or self-care (01) ==
LOC: HO.US 15:03
DX: R22.41 Localized swelling, mass and lump, right lower limb (principal)
CPT/HCPCS: 76882

== ENCOUNTER → 2025-05-31 15:18 | Outpatient (BNV) | payer MEDICAID, SELFPAY | PROVIDERS: Visit Provider Specialist | DX: R22.41 Localized swelling, mass and lump, right lower limb (principal); M25.571 Pain in right ankle and joints of right foot | CPT/HCPCS: 76882 ==